=== PATIENT | male | born 1960 | race Caucasian/White ===

== ENCOUNTER 2018-07-14 20:41 | Emergency (ER) | payer BC ==
[2018-07-14] MEDS ORDERED: predniSONE TAB* 20 MG PO ONE ×2 (20:46→21:41)
[2018-07-14] MEDS ORDERED: EPINEPHrine AMP 1 MG/ML IM ONE (20:46)
[2018-07-14] MEDS ORDERED: Famotidine TAB* 20 MG PO ONE (20:47)
--- NOTE | 2018-07-14 21:21 | UC ---
Allergic Reaction HPI - HPI Summary HPI Summary: Patient is a 57-year-old male that presents here with throat tightness and shortness of breath started soon after a bee sting to the dorsum of his right hand. 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 He reports that he has had multiple bee stings since then and has never had another serious reaction. He develops hives soon after the sting. he denies any chest pain. - History of Current Complaint Chief Complaint: UCAllergicReaction Stated Complaint: BEE STING Time Seen by Provider: 07/14/18 20:46 Hx Obtained From: Patient Onset/Duration: Sudden Onset Severity Initially: Moderate Severity Currently: Moderate Pain Intensity: 4 - dorsum of right hand Character: Swelling, Pruritus, Hives Associated Signs And Symptoms: Positive: Difficulty Breathing, Rash, Throat Tightening. Negative: Abdominal Pain, Chest Pain, Cough Wheezing - Related Hx Possible Reaction To: Insect - Allergies/Home Medications Allergies/Adverse Reactions: Allergies Allergy/AdvReac Type Severity Reaction Status Date / Time bee venom protein (honey bee) Allergy Intermediate hives Verified 07/14/18 20:52 swalling Home Medications: Home Medications Lisinopril 10 mg PO DAILY WITH MEAL 07/14/18 [History Confirmed 07/14/18] PMH/Surg Hx/FS Hx/Imm Hx Endocrine History: Dyslipidemia Cardiovascular History: Hypertension - Surgical History Surgical History: Yes Surgery Procedure, Year, and Place: Bone cancer as a child, removed - Family History Known Family History: Positive: Hypertension Family History: NON CONTRIBUTORY - Social History Alcohol Use: Daily Substance Use Type: None Smoking Status (MU): Never Smoked Tobacco Review of Systems Constitutional: Negative Skin: Rash Eyes: Negative ENT: Negative Respiratory: Shortness Of Breath Cardiovascular: Negative Gastrointestinal: Negative Genitourinary: Negative Motor: Negative Neurovascular: Negative Musculoskeletal: Negative Neurological: Negative Psychological: Negative Is Patient Immunocompromised?: No All Other Systems Reviewed And Are Negative: Yes Physical Exam Triage Information Reviewed: Yes Appearance: Well-Appearing, No Pain Distress, Well-Nourished Vital Signs: Initial Vital Signs Temp 98.5 F 07/14/18 20:46 Pulse 88 07/14/18 20:46 Resp 22 07/14/18 20:46 BP 156/97 07/14/18 20:46 Pulse Ox 96 09/06/18 20:46 Vital Signs Reviewed: Yes Eyes: Positive: Conjunctiva Clear ENT: Positive: Hearing grossly normal, Uvula midline, Other - no angioedema/no stridor. Negative: Pharyngeal erythema, Nasal congestion, Nasal drainage, Tonsillar swelling, Tonsillar exudate, Trismus, Muffled voice, Hoarse voice Dental Exam: Normal Neck: Positive: Supple, Nontender Respiratory: Positive: Lungs clear, Normal breath sounds, No respiratory distress, No accessory muscle use Cardiovascular: Positive: RRR, No Murmur Bowel Sounds: Positive: Present Musculoskeletal: Positive: ROM Intact, No Edema Neurological: Positive: Alert Skin Exam: Other - hives Re-Evaluation - Re-Evaluation First Eval Re-Evaluation Time: 21:21 Change: Improved - hives better/throat tightness gone/ breathing better Second Eval Re-Evaluation Time: 21:43 Change: Improved - NO HIVES/NO THROAT TIGHTNESS/NO SOB Allergic Reaction Course/Dx - Differential Dx/Diagnosis Provider Diagnoses: anaphylactic reaction to bee sting Discharge - Sign-Out/Discharge Documenting (check all that apply): Patient Departure All imaging exams completed and their final reports reviewed: No Studies - Discharge Plan Condition: Stable Disposition: HOME Prescriptions: EPINEPHrine [Epipen 2-Adriano] 0.3 mg IM ONCE PRN #1 inj PRN Reason: Allergy Symptoms Famotidine TAB* [Pepcid 20 MG TAB*] 20 mg PO DAILY #5 tab predniSONE [Deltasone 20 MG TAB] 40 mg PO DAILY #4 tab Patient Education Materials: Anaphylaxis (ED) Referrals: Non Staff,Doctor [Primary Care Provider] - Additional Instructions: I suggest you get seen by an yarding engineer when you get home recheck for new or worsening symptoms benadryl 25mg 2 tables every 4-6 hours for itching IF SYMPTOMS WORSEN CALL AND GO TO THE ER - Billing Disposition and Condition Condition: STABLE Disposition: Home
[2018-07-14] MEDS ORDERED: diPHENhydraMINE PO* 50 MG PO ONE ×2 (21:39→21:52)
[2018-07-14 22:28] VITALS: BP 117/86
[2018-07-14] MEDS ORDERED: EPINEPHRINE 1 MG/ML 1 ML VIAL ONE (22:33)
== END 2018-07-14 22:08 | disposition home or self-care (01) ==
LOC: UCEAST 20:41
DX: T63.441A Toxic effect of venom of bees, accidental (unintentional), initial encounter (principal); T78.2XXA Anaphylactic shock, unspecified, initial encounter; X58.XXXA Exposure to other specified factors, initial encounter; I10 Essential (primary) hypertension; Z91.030 Bee allergy status
CPT/HCPCS: 96372; 99213; A9270-GY; G0463; J0171; J7512

== ENCOUNTER 2019-03-06 07:01 | Emergency (ER) | payer BC ==
[2019-03-06 07:11] VITALS: BP 133/77
--- NOTE | 2019-03-06 07:29 | UC ---
UC General HPI - HPI Summary HPI Summary: 58 year old male presents to the urgent care for evaluation of cold-like symptoms. He reports having a cough, congestion, sore throat, myalgia, and headache. This problem has been present for 2 weeks and is constant. Pt has been using OTC decongestants and afrin for 1 week. He denies any fever, chills, N/V, diarrhea, abdominal pain, SOB, and chest pain. He has no sick contacts and is not a smoker. - History of Current Complaint Chief Complaint: UCGeneralIllness Stated Complaint: CONGESTED Time Seen by Provider: 03/06/19 07:08 Hx Obtained From: Patient Pain Intensity: 5 - Allergy/Home Medications Allergies/Adverse Reactions: Allergies Allergy/AdvReac Type Severity Reaction Status Date / Time bee venom protein (honey bee) Allergy Intermediate hives Verified 03/06/19 07:11 swalling Home Medications: Home Medications Metformin HCl [Metformin HCl ER] 500 mg PO DAILY 03/06/19 [History Confirmed ] hydroCHLOROthiazide [Hydrochlorothiazide] 12.5 mg PO DAILY 03/06/19 [History Confirmed 03/06/19] PMH/Surg Hx/FS Hx/Imm Hx Previously Healthy: Yes Cardiovascular History: Hypertension - Surgical History Surgical History: Yes Surgery Procedure, Year, and Place: Bone cancer as a child, removed - Family History Known Family History: Positive: Hypertension Family History: NON CONTRIBUTORY - Social History Alcohol Use: Daily Substance Use Type: None Smoking Status (MU): Never Smoked Tobacco Review of Systems All Other Systems Reviewed And Are Negative: Yes Constitutional: Negative: Fever, Chills Skin: Negative: Rash ENT: Positive: Sore Throat, Nasal Discharge. Negative: Dental Pain, Ear Ache, Sinus Congestion, Sinus Pain/Tenderness Respiratory: Positive: Cough. Negative: Shortness Of Breath Cardiovascular: Negative: Palpitations, Chest Pain Gastrointestinal: Negative: Abdominal Pain, Vomiting, Diarrhea, Nausea Musculoskeletal: Positive: Myalgia Neurological: Positive: Headache. Negative: Weakness, Paresthesia Physical Exam Triage Information Reviewed: Yes Appearance: Well-Appearing, No Pain Distress, Well-Nourished Vital Signs: Initial Vital Signs Temp 97.8 F 03/06/19 07:04 Pulse 97 03/06/19 07:04 Resp 18 03/06/19 07:04 BP 133/77 03/06/19 07:04 Pulse Ox 92 03/06/19 07:04 Vital Signs Reviewed: Yes Eyes: Positive: Conjunctiva Clear ENT: Positive: Normal ENT inspection, Hearing grossly normal, Pharyngeal erythema - with post nasal drip, Nasal congestion, TMs normal. Negative: Dental tenderness, Sinus tenderness Neck: Positive: Supple, Nontender, No Lymphadenopathy Respiratory: Positive: Chest non-tender, Lungs clear, Normal breath sounds, No respiratory distress. Negative: Crackles Cardiovascular: Positive: RRR, No Murmur, Pulses Normal Abdomen Description: Positive: Nontender Musculoskeletal: Positive: Strength Intact Neurological: Positive: Alert, Muscle Tone Normal Skin Exam: Normal Course/Dx - Course Course Of Treatment: Pt presents with cough, congestion, myalgia, and sore throat that is present for 2 weeks. He has no fevers, SOB, chest pain, dental pain, N/V, and abdominal pain. He has been using afrin for 1 week. His exam reveals post nasal drip and pharyngeal erythema but no sinus tenderness. His lungs were clear bilaterally. Pt is likely experiencing an upper respiratory infection. He is instructed to discontinue the use of afrin which is likely causing worsening of his rhinitis. Pt was prescribed oral decadron and mucinex for his symptoms. He may use OTC tylenol/ibuprofen as needed and follow up with any fever, sinus pain/pressure, or any new/worsening symptoms. Patient was seen in conjunction with the physician therapeutic recreation assistant student. All represented history/physical and medical decision making our mind. Patient with URI symptoms treated symptomatically. No fever. - Differential Dx - Multi-Symptom Differential Diagnoses: Other - URI, sinus infection, pneumonia, seasonal allergies - Diagnoses Provider Diagnosis: Upper respiratory infection Discharge - Sign-Out/Discharge Documenting (check all that apply): Patient Departure All imaging exams completed and their final reports reviewed: No Studies - Discharge Plan Condition: Improved Disposition: HOME Prescriptions: Dexamethasone TAB* [Decadron TAB*] 8 mg PO DAILY #10 tab Guaifenesin/Pseudo 600/60(NF) [Mucinex D 600/60 (NF)] 1 tab PO BID PRN #20 tab PRN Reason: congestion/post nasal drip Patient Education Materials: Upper Respiratory Infection (ED) Referrals: [facility] [Outside] [facility] [Outside] No Primary Care Phys,NOPCP [Primary Care Provider] - Additional Instructions: Discontinue nasal spray/Afrin. This can only be used up to 3 days in a row. This condition of worsening congestion is called rhinitis medicamentosa. Return with fever, increased sinus pain, worse, new symptoms or other concerns. Use a humidifier will sleeping. - Billing Disposition and Condition Condition: IMPROVED Disposition: Home - Attestation Statements Document Initiated by Alla: No
== END 2019-03-06 07:40 | disposition home or self-care (01) ==
LOC: UCEAST 07:01
DX: J06.9 Acute upper respiratory infection, unspecified (principal); I10 Essential (primary) hypertension; Z91.030 Bee allergy status
CPT/HCPCS: 99212; G0463

== ENCOUNTER 2019-03-14 10:40 | Emergency (ER) | payer BC ==
[2019-03-14 11:14] VITALS: BP 108/71
--- NOTE | 2019-03-14 11:30 | UC ---
Respiratory Complaint HPI - HPI Summary HPI Summary: PATIENT HAS HAD OVER 4 WEEKS OF COUGH, CONGESTION, HEADACHE, SORE THROAT, FATIGUE. NO DOCUMENTED FEVER OR NAUSEA/VOMITING. WAS SEEN HERE 8 DAYS AGO ON AND GIVEN DEXAMETHASONE ALONG WITH A COUGH MEDICINE/DECONGESTANT FOR A VIRAL RESPIRATORY INFECTION. HE STATES THESE HELP HIS SYMPTOMS TRANSIENTLY HOWEVER OVERALL HE FEELS NO BETTER. PATIENT DOES NOT HAVE A PCP IN THE AREA HE LIVES IN [place]. IS HERE FOR THE SUMMER. - History of Current Complaint Chief Complaint: UCRespiratory Stated Complaint: COUGH Time Seen by Provider: 03/14/19 11:23 Hx Obtained From: Patient Onset/Duration: Gradual Onset, Lasting Weeks, Still Present Timing: Constant Severity Initially: Moderate Severity Currently: Moderate Pain Intensity: 9 Pain Scale Used: 0-10 Numeric Character: Cough: Nonproductive Aggravating Factors: Nothing Alleviating Factors: Nothing Associated Signs And Symptoms: Positive: URI, Nasal Congestion, Hoarseness, Sinus Discomfort. Negative: Dyspnea, Fever, Wheezing - Allergies/Home Medications Allergies/Adverse Reactions: Allergies Allergy/AdvReac Type Severity Reaction Status Date / Time bee venom protein (honey bee) Allergy Intermediate hives Verified 03/14/19 11:14 swalling Home Medications: Home Medications Ibuprofen 600 mg PO 03/14/19 [History] Naproxen Sodium [Aleve] 440 mg PO 03/14/19 [History] PMH/Surg Hx/FS Hx/Imm Hx Cardiovascular History: Hypertension Other Cancer History: "BONE" CANCER - Surgical History Surgical History: Yes Surgery Procedure, Year, and Place: Bone cancer as a child, removed - Family History Known Family History: Positive: Hypertension - Social History Alcohol Use: Occasionally Substance Use Type: None Smoking Status (MU): Never Smoked Tobacco Review of Systems All Other Systems Reviewed And Are Negative: Yes Constitutional: Positive: Fatigue ENT: Positive: Sore Throat, Nasal Discharge, Sinus Congestion, Sinus Pain/ Tenderness Respiratory: Positive: Cough Cardiovascular: Positive: Negative Gastrointestinal: Positive: Negative Neurological: Positive: Headache Physical Exam Triage Information Reviewed: Yes Appearance: No Pain Distress, Well-Nourished, Ill-Appearing - SEEMS TIRED Vital Signs: Initial Vital Signs Temp 98.4 F 03/14/19 11:10 Pulse 63 03/14/19 11:10 Resp 18 03/14/19 11:10 BP 108/71 03/14/19 11:10 Pulse Ox 96 05/07/19 11:10 Vital Signs Reviewed: Yes Eyes: Positive: Conjunctiva Clear ENT: Positive: Hearing grossly normal, Pharynx normal, TMs normal Neck: Positive: Supple, Nontender, No Lymphadenopathy Respiratory Exam: Normal Cardiovascular Exam: Normal Abdomen Description: Positive: Soft Musculoskeletal: Positive: No Edema Neurological: Positive: Alert Psychological: Positive: Age Appropriate Behavior Skin: Negative: Rashes Respiratory Course/Dx - Course Course Of Treatment: GIVEN THE PATIENT HAS HAD PERSISTENT SYMPTOMS FOR OVER 4 WEEKS WILL COVER WITH ANTIBIOTICS FOR POSSIBLE BACTERIAL INFECTION. PATIENT IS CLEARLY CONGESTED, HOARSE, FATIGUED WITH JUNKY SOUNDING COUGH. SHORT COURSE OF STEROIDS ALONG WITH COUGH MEDICINE/DECONGESTANT PRESCRIBED 03/06 HELPED WITH HIS SYMPTOMS BUT OVERALL HE IS NOT IMPROVED. PATIENT DECLINES CHEST X-RAY TODAY. ADVISED FOLLOW -UP IN THE NEXT 1-2 WEEKS IF HE IS NOT IMPROVING WITH TREATMENT. PATIENT DENIES ANY HISTORY OF SEASONAL ALLERGIES HOWEVER HE HAS RECENTLY JUST COME TO [place] FROM [place] FOR THE SUMMER. ADVISED TO CONSIDER TAKING AN OTC ANTIHISTAMINE THERE MAY BE AN ALLERGIC COMPONENT TO HIS SYMPTOMS. - Differential Dx/Diagnosis Provider Diagnosis: Acute rhinosinusitis Discharge - Sign-Out/Discharge Documenting (check all that apply): Patient Departure All imaging exams completed and their final reports reviewed: No Studies - Discharge Plan Condition: Stable Disposition: HOME Prescriptions: Amoxicillin/Clavulanate TAB* [Augmentin TAB 875*] 875 mg PO BID #20 tab Patient Education Materials: Rhinosinusitis (ED) Referrals: [facility] [Outside] - 1 Week Additional Instructions: YOUR SYMPTOMS MAY BE VIRALLY MEDIATED BUT GIVEN THE LENGTH OF TIME YOU HAVE BEEN ILL WE WILL COVER YOU WITH ANTIBIOTICS. IF YOU START THE MEDICINE BE SURE TO TAKE IT FOR THE FULL COURSE. REST, HYDRATE, OTC MEDS NEEDED. SEEK FOLLOW- UP WITH YOUR PCP IF YOU ARE NOT IMPROVING OVER THE NEXT 1-2 WEEKS. ALSO CONSIDER AN ALLERGIC COMPONENT TO YOUR SYMPTOMS. YOU CAN TRY AN OTC ANTIHISTAMINE SUCH CLARITIN OR ZYRTEC ONCE DAILY. - Billing Disposition and Condition Condition: STABLE Disposition: Home
== END 2019-03-14 12:00 | disposition home or self-care (01) ==
LOC: UCEAST 10:40
DX: J01.90 Acute sinusitis, unspecified (principal); I10 Essential (primary) hypertension; Z85.830 Personal history of malignant neoplasm of bone; Z91.030 Bee allergy status
CPT/HCPCS: 99212; G0463